=== PATIENT | male | born 1960 | race African-American/Black ===

== ENCOUNTER 2021-05-19 16:40 | Emergency (ER) | payer OTHER ==
[~2021-05-19] VITALS: Ht 172.7 cm; Wt 90.7 kg
[2021-05-19 17:31] LABS: URINE BILIRUBIN NEGATIVE (Negative); URINE BLOOD NEGATIVE (Negative); URINE CLARITY CLEAR; URINE COLOR YELLOW; URINE GLUCOSE-RANDOM* NEGATIVE (Negative); URINE KETONES NEGATIVE (Negative); URINE LEUKOCYTES-REFLEX NEGATIVE (Negative); URINE NITRITE-REFLEX NEGATIVE (Negative); URINE PROTEIN (DIPSTICK) NEGATIVE (Negative); URINE SPECIFIC GRAVITY <= 1.005 (1.005-1.035); URINE UROBILINOGEN 0.2 E.U./dl (0.2-1.0)
[2021-05-19 17:48] LABS: ABSOLUTE NEUTROPHILS 3.4 thou/uL (1.4-8.2); BASOPHILS 0.7 % (0.0-2.0); EOSINOPHILS 5.7 % (0.0-3.0); HEMATOCRIT 46.3 % (42.0-52.0); HEMOGLOBIN 15.7 gm/dL (14.0-18.0); LYMPHOCYTES 19.8 % (24.0-44.0); MCH 31.1 pg (26.0-34.0); MCHC 33.9 g/dL (28.0-37.0); MCV 91.5 fL (80.0-100.0); MONOCYTES 10.5 % (1.0-8.0); POLYS 63.3 % (36.0-66.0); RBC 5.06 mil/uL (4.50-6.00); RDW 15.8 % (10.5-14.5); WBC 5.4 thou/uL (4.0-11.0)
[2021-05-19 17:59] LABS: CALCIUM 9.3 mg/dL (8.5-10.1); CREATININE 1.2 mg/dL (0.7-1.3); POTASSIUM 4.2 mmol/L (3.5-5.1)
[2021-05-19 18:08] LABS: ALBUMIN 3.8 g/dL (3.4-5.0); TOTAL BILIRUBIN 0.4 mg/dL (0.2-1.0); TOTAL PROTEIN 7.7 g/dL (6.4-8.2)
[2021-05-19] MEDS ORDERED: LISINOPRIL20 MG PO (18:28)
[2021-05-19 18:33] LABS: LARGE PLATELETS RARE; PLATELET COUNT 120 thou/uL (150-400)
[2021-05-19 19:09] VITALS: BP 188/102
--- NOTE | 2021-05-20 08:10 | EKG ---
[place] [address] [employer] [facility] [place] [address] ELECTROCARDIOGRAM REPORT Name: SUKHJINDER KIDD Room #: REG JENNY More#: [id number] Admission: 05/19/21 Attend Phys: Discharge: Date of : 56 Report #: [id number] [facility] ED Test Date: 2021-05-19 Test Time: 17:15:29 Pat Name: SUKHJINDER KIDD Department: Room: Gender: M Filament Tester: ten : 1960 Requested By: Letty Moore Order Number: [id number] MD: Robson Cole Measurements Intervals [place] Rate: 59 P: 63 MI: 149 QRS: -58 QRSD: 160 T: -13 QT: 448 QTc: 444 Interpretive Statements Sinus rhythm Probable left atrial enlargement Right bundle branch block Anteroseptal infarct, age indeterminate No previous ECG available for comparison Electronically Signed On 05-20-2021 8:09:53 IMMUNOLOGY TEACHER by Robson Cole [email or web address] <ELECTRONICALLY SIGNED> By: Robson Cole MD, [facility] 05/20/21 0809 1715 1715 Robson Cole MD, FACC /EPI
--- NOTE | 2021-05-21 07:38 | EKG ---
[place] [address] [address] [facility] [facility] [place] [address] ELECTROCARDIOGRAM REPORT Name: SUKHJINDER KIDD Room #: DEP JENNY More#: [id number] Admission: 05/19/21 Attend Phys: Discharge: 05/20/21 Date of : 56 Report #: [id number] [facility] ED Test Date: 2021-05-19 Test Time: 17:13:25 Pat Name: SUKHJINDER KIDD Department: Room: Gender: Product Marketing Director: ten : 1960 Requested By: Letty Moore Order Number: [id number] MD: Robson Cole Measurements Intervals [place] Rate: 54 P: 77 ND: 150 QRS: -61 QRSD: 157 T: -14 QT: 443 QTc: 420 Interpretive Statements Sinus rhythm Right bundle branch block Anteroseptal infarct, age indeterminate No previous ECG available for comparison Electronically Signed On 05-21-2021 7:38:07 AGRICULTURAL EXTENSION EDUCATOR by Robson Cole [email or web address] <ELECTRONICALLY SIGNED> By: Robson Cole MD, [facility] 05/21/21 0738 1713 1713 Robson Cole MD, FACC /EPI
== END 2021-05-20 07:27 | disposition home or self-care (01) ==
LOC: ER 16:40
PROVIDERS: Physician Assistant
DX: I10 Essential (primary) hypertension (principal); F17.200 Nicotine dependence, unspecified, uncomplicated